=== PATIENT | female | born 1955 | race Caucasian/White ===

== ENCOUNTER 2018-01-30 21:26 | Emergency (ER) | payer BC ==
[~2018-01-30] VITALS: Ht 149.9 cm; Wt 49.0 kg
--- OUTSIDE RECORDS SUMMARY | 2018-01-30 21:28 | XMS REPORT | Summary of Care ---
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 Unavailable Unavailable FIFI Templeton, ELIDA Unavailable Unavailable ELIDA VAZQUEZ Unavailable Unavailable MIKEY ESPINO, SHAJI CARD Unavailable Unavailable Unavailable Unavailable Functional Status Name Dates Details Functional status health issues are not documented Status: Name Dates Details Cognitive status health issues are not documented Status: Problems Name Dates Details Other hyperlipidemia (272.4, E78.49) Status: Active Restless legs syndrome (333.94, G25.81) Status: Active Cough (786.2, R05) Status: Active Bruise of face (920, S00.83XA) Status: Active Hearing loss, conductive (389.00, H90.2) Status: Active Colon cancer screening (V76.51, Z12.11) Status: Active Acid reflux (530.81, K21.9) Status: Active Body aches (780.96, R52) Status: Active 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, 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) Status: Active Visit for screening mammogram (V76.12, Z12.31) Status: Active Flu vaccine need (V04.81, Z23) Status: Active Atypical squamous cells of undetermined significance (ASCUS) on Papanicolaou smear of cervix (795.01, R87.610) Status: Active Herpes simplex (054.9, B00.9) Status: Active S/P aorto-bifemoral bypass surgery (V45.89, Z95.828) Status: Active PVD (peripheral vascular disease) (443.9, I73.9) Status: Active Renal artery stenosis (440.1, I70.1) Status: Active Recurrent bronchiectasis (494.0, J47.9) Status: Active Seasonal allergic rhinitis (477.9, J30.2) Status: Active Essential (primary) hypertension (401.9, I10) Status: Active Generalized anxiety disorder (300.02, F41.1) Status: Active Atherosclerosis of aortic bifurcation and common iliac arteries (440.0, I70.0) Status: Active Medications Name Dates Details Atorvastatin Calcium 20 MG Oral Tablet TAKE ONE TABLET BY MOUTH *SCHEDULE OFFICE VISIT FOR FURTHER REFILLS* EVERY DAY FOR HIGH CHOLESTEROL Quantity: 15 EDWARD HAHN M.D. * Start : 16-May-2013 Active Atenolol 50 MG Oral Tablet TAKE ONE TABLET ONCE DAILY * Quantity: 90 Refills: 1 EDWARD HAHN M.D. * Start : 16-May-2013 Active Clopidogrel Bisulfate 75 MG Oral Tablet TAKE 1 TABLET DAILY. * Refills: 0 Active Fish Oil 1200 MG Oral Capsule daily * Refills: 0 Active Vitamin E 400 UNIT Oral Capsule one daily * Refills: 0 Active Vitamin B12 TABS TAKE 1 TABLET DAILY * Refills: 0 Active Vitamin D TABS TAKE 1 TABLET DAILY * Refills: 0 Active Vitamin C TABS TAKE 1 TABLET DAILY. * Refills: 0 Active NIFEdipine ER 30 MG Oral Tablet Extended Release 24 Hour TAKE 1 TABLET DAILY DIRECTED. * Quantity: 30 Refills: 3 Active ProAir HFA 108 (90 Base) MCG/ACT Inhalation Aerosol Solution INHALE 1 TO 2 PUFFS EVERY 4 TO 6 HOURS NEEDED. * Quantity: 1 Refills: 5 YEH D.O., ELIDA * Start : 29-May-2015 Active 8.5 GM Inhaler Fluticasone Propionate 50 MCG/ACT Nasal Suspension USE 2 SPRAYS IN EACH NOSTRIL ONCE DAILY * Quantity: 16 Refills: 1 YEH D.O., ELIDA * Start : 16-Oct-2015 Active BusPIRone HCl - 15 MG Oral Tablet TAKE 1 TABLET BY MOUTH EVERY DAY * Quantity: 90 Refills: 1 YEH D.O., ELIDA * Start : 16-Oct-2015 Active Azelastine HCl - 0.1 % Nasal Solution USE 1 SPRAY IN EACH NOSTRIL TWICE DAILY. * Quantity: 1 Refills: 5 YEH D.O., ELIDA * Start : 03-Mar-2017 Active 30 ML Bottle Montelukast Sodium 10 MG Oral Tablet TAKE 1 TABLET BY MOUTH AT BEDTIME * Quantity: 90 Refills: 1 YEH D.O., [place]ST[place]-MICHELINE * Start : 03-Mar-2017 Active Olmesartan Medoxomil-HCTZ 40-25 MG Oral Tablet TAKE 1 TABLET DAILY. * Refills: 0 * Start : 06-May-2017 Active PredniSONE 10 MG Oral Tablet 2 tabs po QAM w/ food x 3d, then 1 tab po qd x 8d. Start in the AM * Quantity: 14 Refills: 0 BYRD N.P., CARLY * Start : 19-Dec-2017 Active Promethazine VC Plain 6.25-5 MG/5ML SOLN TAKE 5-10 ML EVERY 6 HOURS NEEDED FOR COUGH. * Quantity: 1 Refills: 1 BYRD N.P., CARLY * Start : 19-Dec-2017 Active 473 ML Bottle Mucinex DM Maximum Strength 60-1200 MG Oral Tablet Extended Release 12 Hour TAKE 2 TABLETSEVERY 12 HOURS NEEDED FOR CONGESTION. * Quantity: 60 Refills: 0 BYRD N.P., CARLY * Start : 19-Dec-2017 Active Sudafed PE Congestion 10 MG Oral Tablet TAKE 1 TABLET EVERY 4 HOURS NEEDED for head, sinus, ear congestion.. * Quantity: 60 Refills: 3 BYRD N.P., CARLY * Start : 19-Dec-2017 Active Vicks NyQuil Cold & Flu 15-6.25-325 MG Oral Capsule TAKE DIRECTED FOR BEDTIME CONGESTION.. * Quantity: 5 Refills: 0 BYRD N.P., CARLY * Start : 19-Dec-2017 Active Doxycycline Hyclate 100 MG Oral Capsule TAKE 1 CAPSULE TWICE DAILY WITH MEALS. * Quantity: 20 Refills: 0 BYRD N.P., CARLY * Start : 19-Dec-2017 Active Symbicort 160-4.5 MCG/ACT Inhalation Aerosol INHALE 2 PUFFS (3 MIN apart) TWICE DAILY (BREAKFAST & SUPPER). RINSE MOUTH AFTER USE. * Quantity: 1 Refills: 5 BYRD N.P., CARLY * Start : 19-Dec-2017 Active 10.2 GM Inhaler Allergies and Adverse Reactions Name Dates Details Dimetapp Decongestant CAPS (Allergy) Status: Active Past Medical History Name Dates Details History of Influenza A (487.1, J10.1) Status: Resolved History of peripheral arterial disease (V12.59, Z86.79) Status: Resolved Procedures Procedure Dates Details History of Breast Surgery Completed History of Section Completed History of Peripheral vascular replacement surgery Completed Immunization Name Dates Details Tdap (Adacel) on: Feb-2015 Fluzone Quadrivalent 0.5 ML Intramuscular Suspension Prefilled Syringe Lot #: [id number] on: 11-Nov-2017 Family History Name Dates Details Family history of Coronary Artery Disease (V17.49) Status: Active Family history of Diabetes Mellitus (V18.0) Status: Active Name Dates Details Family history of Cancer Status: Active Name Dates Details Family history of Coronary Artery Disease (V17.49) Status: Active Name Dates Details Family history of Coronary Artery Disease (V17.49) Status: Active Social History Name Dates Details - Status: Name Dates Details Current every day smoker Former smoker Vital Signs Date Test Result Details [id number] BP Systolic 150 mm[Hg] Status: Comments: Location: LUE; Position: Sitting BP Diastolic 81 mm[Hg] Status: Comments: Location: LUE; Position: Sitting Weight 108 lb Status: Body Mass Index Calculated 21.81 kg/m2 Status: Body Surface Area Calculated 1.42 m2 Status: Height 59 in Status: Temperature 97.2 f Status: Comments: Method: Temporal Respiration Rate 16 /min Status: Heart Rate 62 /min Status: 67-Fde-23940:26 BP Systolic 152 mm[Hg] Status: Comments: Location: LUE; Position: Sitting BP Diastolic 68 mm[Hg] Status: Comments: Location: LUE; Position: Sitting Heart Rate 74 /min Status: Comments: Location: L Brachial Artery; 61-Tag-44811:25 BP Systolic 143 mm[Hg] Status: Comments: Location: LUE; Position: Sitting BP Diastolic 72 mm[Hg] Status: Comments: Location: LUE; Position: Sitting Weight 107.1 lb Status: Body Mass Index Calculated 21.63 kg/m2 Status: Body Surface Area Calculated 1.41 m2 Status: Height 59 in Status: Temperature 98.7 f Status: Comments: Method: Temporal Respiration Rate 16 /min Status: Heart Rate 72 /min Status: Comments: Location: L Brachial Artery; Results Date Description Value Details Results not documented Plan of Care Name Dates Details Planned Observations Planned Goals not documented Planned Encounters Appointment; FARRAH VERDE M.D. On: 01-Dec-2018 10:00 Interventions Provided Medication Changes* BusPIRone HCl - 15 MG Oral Tablet - Renew * Montelukast Sodium 10 MG Oral Tablet - Renew * ProAir HFA 108 (90 Base) MCG/ACT Inhalation Aerosol Solution - Renew Instructions* Patient Specific Education Given; Done: 12 Jan 2018 Plan* Seasonal Allergic Rhinitis - stable. Continue Zyrtec. Refilled Singulair. Continue Fluticasone. Refilled ProAir * HTN - stable. Continue Atenolol * HLD - stable. Continue Atorvastatin * Anxiety - Stable. Refilled Buspar * Peripheral Vascular disease - stable. F/U with vascular. * Follow-up in 3 months, sooner if needed Instructions Name Dates Details Instructions not documented Encounters Appointment; ELIDA CALIX D.O. Encounter Diagnosis: Problem not documented On: 15-Apr-2016 10:45 Appointment; ELIDA CALIX D.O. Encounter Diagnosis: Problem not documented On: 16-Jun-2016 12:30 Appointment; ELIDA CALIX D.O. Encounter Diagnosis: Problem not documented On: 26-Nov-2016 15:30 Appointment; CHRIS JIMENEZ M.D. Encounter Diagnosis: Problem not documented On: 18-Dec-2016 11:45 Appointment; CHRISTINE BARRETT NP Encounter Diagnosis: Problem not documented On: 04-Feb-2017 18:00 Appointment; ELIDA CALIX D.O. Encounter Diagnosis: Problem not documented On: 03-Mar-2017 14:00 Appointment; DR YEE KEITH Encounter Diagnosis: Problem not documented On: 08-Apr-2017 8:30 Appointment; KEVIN FRAIRE M.D. Encounter Diagnosis: Problem not documented On: 13-Apr-2017 13:15 Appointment; KEVIN FRAIRE M.D. Encounter Diagnosis: Problem not documented On: 13-Apr-2017 13:15 Appointment; ELIDA CALIX D.O. Encounter Diagnosis: Problem not documented On: 06-May-2017 9:30 Appointment; KEVIN FRAIRE M.D. Encounter Diagnosis: Problem not documented On: 01-Jun-2017 10:45 Appointment; DR YEE KEITH Encounter Diagnosis: Problem not documented On: 08-Jul-2017 7:30 Appointment; DR YEE KEITH Encounter Diagnosis: Problem not documented On: 22-Jul-2017 9:00 Appointment; KEVIN FRAIRE M.D. Encounter Diagnosis: Problem not documented On: 27-Jul-2017 9:30 Appointment; ELIDA CALIX D.O. Encounter Diagnosis: Problem not documented On: 27-Oct-2017 12:30 Appointment; NATACHA JAVED P.A. Encounter Diagnosis: Problem not documented On: 11-Nov-2017 9:45 Appointment; NATACHA JAVED P.A. Encounter Diagnosis: Problem not documented On: 11-Nov-2017 9:45 Appointment; FARRAH VERDE M.D. Encounter Diagnosis: Problem not documented On: 02-Dec-2017 15:15 Appointment; DR YEE KEITH Encounter Diagnosis: Problem not documented On: 07-Dec-2017 11:30 Appointment; KEVIN FRAIRE M.D. Encounter Diagnosis: Problem not documented On: 07-Dec-2017 13:00 Appointment; CARLY BYRD NP Encounter Diagnosis: Problem not documented On: 19-Dec-2017 9:30 Appointment; ELIDA CALIX D.O. Encounter Diagnosis: Problem not documented On: 12-Jan-2018 10:15
--- NOTE | 2018-01-30 22:23 | NUR ---
PATIENT APPEARS TO BE INTOXICATED, PATIENT CUSSING AND THRASHING. PATIENT REFUSING THE CERVAL COLLAR THAT WAS ORDERED BY .
--- NOTE | 2018-01-30 22:55 | Diagnostic Imaging Report ---
EXAMINATION: Head CT without contrast. HISTORY:Status post fall. COMPARISON:None. TECHNIQUE: Multidetector axial images were obtained from the foramen magnum to the vertex without contrast. The images were reconstructed using brain and bone algorithms. Thin section brain images were reformatted into coronal and sagittal planes. Dose modulation, iterative reconstruction, and/or weight based adjustment of the mA/kV was utilized to reduce the radiation dose to as low as reasonably achievable. Intravenous contrast: None IMAGE QUALITY: Acceptable. FINDINGS: Skull/scalp: Moderate right parieto-occipital scalp edema/hematoma. No subcutaneous soft tissue emphysema or radiopaque foreign body. No acute depressed or displaced calvarial fracture. Parenchyma: Nonspecific few, scattered supratentorial white matter hypodensity are likely related to small vessel ischemic changes. No acute hemorrhage, mass or acute major vascular territorial infarct. Arteries: No density suggestive of thrombosis. Atherosclerotic calcification in bilateral carotid siphon. Dural sinuses: No abnormal density suggestive of thrombosis. Ventricles: No hydrocephalus or displacement. Extra-axial spaces: No abnormal density. Brain volume: Normal for age. Craniocervical junction: No mass, Chiari malformation, or basilar invagination. Sella: No mass. Paranasal/mastoid sinuses: Imaged portions unremarkable. IMPRESSION: 1. Moderate right parietal occipital scalp edema/hematoma. No acute fracture. 2. No acute posttraumatic intracranial abnormality. 3. Mild supratentorial white matter microvascular ischemic changes. Signed by: Dr. Valerie Haynes M.D. on 01/30/2018 10:52 PM
--- NOTE | 2018-01-30 22:59 | Diagnostic Imaging Report ---
History: Status post fall. Comparison studies: None Technique: Axial images were obtained through the cervical region.. Coronal and sagittal images reconstructed from the axial data. Dose modulation, iterative reconstruction, and/or weight based adjustment of the mA/kV was utilized to reduce the radiation dose to as low as reasonably achievable. Intravenous contrast: None Findings: Fractures: None. Soft tissue injuries: None. Atlantoaxial articulation: Intact. Alignment: Loss of normal cervical lordosis is either positional or due to muscle spasm. No scoliosis. Cervicomedullary junction: No abnormalities. The foramen magnum is patent. Soft tissues: Atherosclerotic calcification in bilateral carotid bulb. Vertebrae: No fractures, infection or neoplasm. Degenerative changes: C5-C6: Mild degenerative disc disease with decreased intervertebral disc space, endplate sclerosis and anterior vertebral osteophyte. No significant canal or foraminal stenosis.. IMPRESSION: 1. No acute cervical spine fracture or dislocation. Loss of normal cervical lordosis is either positional or due to muscle spasm. 2. Ligament, spinal cord and or vascular abnormalities cannot be excluded on the basis of this examination. Signed by: Dr. Valerie Haynes M.D. on 01/30/2018 10:56 PM
[2018-01-30 23:33] VITALS: BP 123/68
== END 2018-01-30 23:35 | disposition home or self-care (01) ==
LOC: ER 21:26
DX: S09.90XA Unspecified injury of head, initial encounter (principal); Y93.9 Activity, unspecified; Y92.019 Unspecified place in single-family (private) house as the place of occurrence of the external cause; F10.120 Alcohol abuse with intoxication, uncomplicated; W01.0XXA Fall on same level from slipping, tripping and stumbling without subsequent striking against object, initial encounter
CPT/HCPCS: 70450; 72125; 99283